=== PATIENT | male | born 1955 | race Caucasian/White ===

== ENCOUNTER 2019-07-09 12:44 | Inpatient (IN) | payer BC ==
--- NOTE | 2019-07-09 13:33 | EDM.PDOC ---
ED HPI GENERAL MEDICAL PROBLEM - General Chief Complaint: Gastrointestinal Problem Stated Complaint: VOMITING, POST SURGERY Time Seen by Provider: 07/09/19 13:00 Source of Information: Reports: Patient, Family History Limitations: Reports: No Limitations - History of Present Illness INITIAL COMMENTS - FREE TEXT/NARRATIVE: 64-year-old male with epigastric pain, pressure and bloating with nausea for the past 36 hours. He has a history of gastric bypass 8 years ago and has done real well. However over the last 36 hours every time he eats he gets distention , pressure, upper abdominal pain and then emesis. He has had no bowel movement for the past 2 days which is very unusual for him. No fevers or chills. Onset: Sudden Duration: Hour(s): (36 hours) Location: Reports: Abdomen (Upper abdomen) Associated Symptoms: Reports: Nausea/Vomiting. Denies: Chest Pain, Cough, Diaphoresis, Fever/Chills, Headaches, Malaise (Especially after eating), Shortness of Breath Abdominal Pain Score (Numeric/FACES): 5 - Related Data Allergies Allergy/AdvReac Type Severity Reaction Status Date / Time No Known Allergies Allergy Verified 07/09/19 13:16 Home Meds: Home Meds Levothyroxine 75 mcg PO ACBREAKFAST 07/09/19 [History] Past Medical History HEENT History: Reports: Allergic Rhinitis, Cataract, Impaired Vision Cardiovascular History: Reports: Hypertension Genitourinary History: Reports: Renal Calculus Endocrine/Metabolic History: Reports: Hypothyroidism Hematologic History: Reports: Iron Deficiency - Past Surgical History GI Surgical History: Reports: Bariatric Procedure Social & Family History - Tobacco Use Smoking Status *Q: Never Smoker - Recreational Drug Use Recreational Drug Use: No ED ROS GENERAL - Review of Systems Review Of Systems: See Below Constitutional: Reports: Malaise. Denies: Fever, Chills HEENT: Reports: No Symptoms Respiratory: Denies: Shortness of Breath Cardiovascular: Denies: Chest Pain GI/Abdominal: Reports: Abdominal Pain, Distension, Nausea, Vomiting : Reports: No Symptoms Musculoskeletal: Reports: No Symptoms Skin: Reports: No Symptoms Neurological: Reports: No Symptoms Psychiatric: Reports: No Symptoms ED EXAM, GI/ABD - Physical Exam Exam: See Below Exam Limited By: No Limitations General Appearance: Alert, No Apparent Distress Eyes: Bilateral: Normal Appearance Head: Atraumatic Respiratory/Chest: No Respiratory Distress, Lungs Clear, Chest Non-Tender Cardiovascular: Regular Rate, Rhythm GI/Abdominal Exam: Soft, Tender (Tender to palpation across the upper abdomen but no guarding or rebound. No significant distention.), Abnormal Bowel Sounds ( Bowel sounds are hypoactive) Extremities: No: Pedal Edema Neurological: Alert, Oriented Psychiatric: Normal Affect, Normal Mood Skin Exam: Warm, Dry Course - Vital Signs Last Recorded V/S: Last Vital Signs Temp 98.3 F 07/10/19 16:00 Pulse 58 L 07/10/19 16:00 Resp 18 07/10/19 16:00 BP 108/74 07/10/19 16:00 Pulse Ox 95 07/10/19 16:00 - Orders/Labs/Meds Orders: Medication Orders Acetaminophen (Tylenol Extra Strength) 1,000 mg PO Q6H [facility] Celecoxib (Celebrex) 200 mg PO DAILY@0800 [facility] Cyanocobalamin (Vitamin B12) 1,000 mcg IM ONETIME ONE Stop: 07/12/19 09:01 Cyclobenzaprine HCl (Flexeril) 10 mg PO Q6H PRN PRN Reason: Muscle Spasm Diphenhydramine HCl (Benadryl) 50 mg IVPUSH Q4H PRN PRN Reason: ITCHING Gabapentin (Neurontin) 300 mg PO TID [facility] Heparin Sodium (Porcine) (Heparin Sodium) 5,000 units SUBCUT Q12H [facility] Last Admin: 07/10/19 17:17 Dose: 5,000 units Hydromorphone HCl (Dilaudid) 0.5 mg IVPUSH Q2H PRN PRN Reason: MODERATE PAIN Hydromorphone HCl (Dilaudid) 1 mg IV Q2H PRN PRN Reason: SEVERE PAIN Hydroxyzine HCl (Vistaril) 100 mg IM Q4H PRN PRN Reason: pain Lidocaine HCl/Dextrose (Lidocaine 2 Gm/D5w 500 Ml) 2 gm in 500 mls @ 15 mls/hr IV .Q24H [facility] Stop: 07/11/19 14:00 Last Admin: 07/10/19 17:17 Dose: 1 mg/min, 15 mls/hr Dextrose/Lactated Ringer's (Dextrose 5%-Lactated Ringers) 1,000 mls @ 175 mls/ hr IV ASDIRECTED [facility] Multivitamins/Minerals 10 ml/Thiamine HCl 200 mg/ Chromium/Copper/Manganese/ Seleni/Zn 1 ml/ Dextrose/Lactated Ringer's 1,013 mls @ 175 mls/hr IV DAILY@ 1600 [facility] Last Admin: 07/10/19 17:16 Dose: 175 mls/hr Cefoxitin Sodium 2 gm/ Sodium (Chloride) 50 mls @ 100 mls/hr IV Q6H [facility] Stop: 07/11/19 06:29 Last Admin: 07/10/19 17:16 Dose: 100 mls/hr Ferric Sodium Gluconate Complex 250 mg/ Sodium Chloride 120 mls @ 60 mls/hr IV ONETIME ONE Stop: 07/11/19 11:59 Labetalol HCl (Normodyne) 5 mg IVPUSH Q5M PRN PRN Reason: SBP over 160 OR DBP over 95 Levothyroxine Sodium (Levothyroxine) 75 mcg PO DAILY@0730 [facility] Last Admin: 07/10/19 17:16 Dose: 75 mcg Metoclopramide HCl (Reglan) 10 mg IVPUSH Q6H PRN PRN Reason: NAUSEA NOT CONTROL BY ZOFRAN Miscellaneous Information (Remove Patch) 1 ea TRDERM ONETIME ONE Stop: 07/12/19 10:01 Scopolamine Patch (Check) 1 each TOP DAILY [facility] Stop: 07/12/19 14:55 Ondansetron HCl (Zofran) 4 mg IV Q4H PRN PRN Reason: Nausea/Vomiting Pantoprazole Sodium (Protonix Iv) 40 mg IVPUSH Q24H [facility] Scopolamine (Transderm-Scop) 1.5 mg TOP Q72H [facility] Stop: 07/12/19 10:00 Last Admin: 07/10/19 17:17 Dose: 1.5 mg Labs: Laboratory Tests 07/09/19 07/09/19 Range/Units 13:46 13:46 WBC 7.6 (4.5-11.0) K/uL RBC 4.25 L (4.30-5.90) M/uL Hgb 12.6 (12.0-15.0) g/dL Hct 39.2 L (40.0-54.0) % MCV 92 (80-98) fL MCH 30 (27-31) pg MCHC 32 (32-36) % Plt Count 279 (150-400) K/uL Neut % (Auto) 81 H (36-66) % Lymph % (Auto) 8 L (24-44) % [place] % (Auto) 11 H (2-6) % Eos % (Auto) 0 L (2-4) % Baso % (Auto) 0 (0-1) % Sodium 138 L (140-148) mmol/L Potassium 3.8 (3.6-5.2) mmol/L Chloride 103 (100-108) mmol/L Carbon Dioxide 21 (21-32) mmol/L Anion Gap 17.8 H (5.0-14.0) mmol/L BUN 18 (7-18) mg/dL Creatinine 1.1 (0.8-1.3) mg/dL Est Cr Clr Drug Dosing 69.63 mL/min Estimated GFR (MDRD) > 60 (>60) Glucose 106 (74-106) mg/dL Calcium 9.0 (8.5-10.1) mg/dL Total Bilirubin 0.8 (0.2-1.0) mg/dL AST 26 (15-37) U/L ALT 30 (12-78) U/L Alkaline Phosphatase 110 (46-116) U/L Total Protein 7.4 (6.4-8.2) g/dL Albumin 3.9 (3.4-5.0) g/dL Globulin 3.5 (2.3-3.5) g/dL Albumin/Globulin Ratio 1.1 L (1.2-2.2) Lipase 285 (73-393) U/L Meds: Medications Generic Name Dose Route Start Last Admin Trade Name Freq PRN Reason Stop Dose Admin Acetaminophen 1,000 mg 07/10/19 20:00 Tylenol Extra Strength PO Q6H [facility] Celecoxib 200 mg 07/11/19 08:00 Celebrex PO DAILY@0800 [facility] Cyanocobalamin 1,000 mcg 07/12/19 09:00 Vitamin B12 IM 07/12/19 09:01 ONETIME ONE Cyclobenzaprine HCl 10 mg 07/10/19 14:58 Flexeril PO Q6H PRN Muscle Spasm Diphenhydramine HCl 50 mg 07/10/19 14:54 Benadryl IVPUSH Q4H PRN ITCHING Gabapentin 300 mg 07/10/19 21:00 Neurontin PO TID AD[facility] Heparin Sodium (Porcine) 5,000 units 07/10/19 18:00 07/10/19 17:17 Heparin Sodium SUBCUT 5,000 units Q12H [facility] Administration Hydromorphone HCl 0.5 mg 07/10/19 14:54 Dilaudid IVPUSH Q2H PRN MODERATE PAIN Hydromorphone HCl 1 mg 07/10/19 14:54 Dilaudid IV Q2H PRN SEVERE PAIN Hydroxyzine HCl 100 mg 07/10/19 14:54 Vistaril IM Q4H PRN pain Lidocaine HCl/Dextrose 2 gm in 500 mls @ 15 mls/hr 07/10/19 11:00 07/10/19 17 :17 Lidocaine 2 Gm/D5w 500 Ml IV 07/11/19 14:00 1 mg/min .Q24H [facility] 15 mls/hr Administration 1 MG/MIN Dextrose/Lactated Ringer's 1,000 mls @ 175 mls/hr 07/10/19 15:00 Dextrose 5%-Lactated Ringers IV ASDIRECTED [facility] Multivitamins/Minerals 10 ml/ 1,013 mls @ 175 mls/hr 07/10/19 16:00 07/10/19 17:16 Thiamine HCl 200 mg/ Chromium/ IV 175 mls/hr Copper/Manganese/Seleni/Zn 1 DAILY@1600 [facility] Administration ml/ Dextrose/Lactated Ringer's Cefoxitin Sodium 2 gm/ Sodium 50 mls @ 100 mls/hr 07/10/19 18:00 07/10/19 17: 16 Chloride IV 07/11/19 06:29 100 mls/hr Q6H [facility] Administration Ferric Sodium Gluconate 120 mls @ 60 mls/hr 07/11/19 10:00 Complex 250 mg/ Sodium IV 07/11/19 11:59 Chloride ONETIME ONE Labetalol HCl 5 mg 07/10/19 14:54 Normodyne IVPUSH Q5M PRN SBP over 160 OR DBP over 95 Levothyroxine Sodium 75 mcg 07/10/19 16:00 07/10/19 17:16 Levothyroxine PO 75 mcg DAILY@0730 [facility] Administration Metoclopramide HCl 10 mg 07/10/19 14:54 Reglan IVPUSH Q6H PRN NAUSEA NOT CONTROL BY ZOFRAN Miscellaneous Information 1 ea 07/12/19 10:00 Remove Patch TRDERM 07/12/19 10:01 ONETIME ONE Scopolamine Patch 1 each 07/10/19 14:54 Check TOP 07/12/19 14:55 DAILY [facility] Ondansetron HCl 4 mg 07/09/19 16:06 Zofran IV Q4H PRN Nausea/Vomiting Pantoprazole Sodium 40 mg 07/11/19 05:00 Protonix Iv IVPUSH Q24H [facility] Scopolamine 1.5 mg 07/10/19 16:00 07/10/19 17:17 Transderm-Scop TOP 07/12/19 10:00 1.5 mg Q72H [facility] Administration Discontinued Medications Generic Name Dose Route Start Last Admin Trade Name Freq PRN Reason Stop Dose Admin Bupivacaine HCl/Epinephrine Bitart Confirm 07/10/19 12:56 07/10/19 13:36 Marcaine 0.5%/Epinephrine 1:200,000 Administered 07/10/19 12:57 40 ml Dose Administration 50 ml .ROUTE .STK-MED ONE Ropivacaine 40 ml/ 0 ml 07/10/19 10:30 07/10/19 13:22 Dexamethasone 8 mg/ NERVRT 80 syringe Epinephrine HCl 0.4 mg/ Sodium ASDIRECTED ADONAY Administration Chloride 37.6 ml Dexamethasone Confirm 07/10/19 08:31 Dexamethasone Administered 07/10/19 08:32 Dose 4 mg .ROUTE .STK-MED ONE Fentanyl Confirm 07/10/19 08:31 Sublimaze Administered 07/10/19 08:32 Dose 250 mcg .ROUTE .STK-MED ONE Fentanyl Confirm 07/10/19 12:34 Sublimaze Administered 07/10/19 12:35 Dose 250 mcg .ROUTE .STK-MED ONE Fentanyl 50 mcg 07/10/19 14:07 07/10/19 14:14 Sublimaze IVPUSH 07/10/19 14:08 50 mcg ONETIME ONE Administration Glycopyrrolate Confirm 07/10/19 08:31 Robinul Administered 07/10/19 08:32 Dose 1 mg .ROUTE .STK-MED ONE Hydromorphone HCl 0.5 mg 07/09/19 16:10 07/09/19 21:13 Dilaudid IVPUSH 0.5 mg Q4H PRN Administration Pain Hydroxyzine HCl 75 mg 07/10/19 14:08 07/10/19 14:15 Vistaril IM 07/10/19 14:09 75 mg ONETIME ONE Administration Sodium Chloride 1,000 mls @ 500 mls/hr 07/09/19 14:15 07/09/19 15:00 Normal Saline IV 500 mls/hr ASDIRECTED ADONAY Administration Sodium Chloride 80 mls @ 3.5 mls/sec 07/09/19 14:29 07/09/19 14:48 Normal Saline IV 07/09/19 14:30 3 mls/sec ONETIME ONE Administration Dextrose/Lactated Ringer's 1,000 mls @ 150 mls/hr 07/09/19 16:15 07/10/19 06: 25 Dextrose 5%-Lactated Ringers IV 150 mls/hr ASDIRECTED [facility] Administration Ketamine HCl 50 mg/ Sodium 50 mls @ 21 mls/hr 07/10/19 10:30 Chloride IV ASDIRECTED ADONAY 5 MCG/KG/MIN Cefoxitin Sodium 2 gm/ Sodium 50 mls @ 100 mls/hr 07/10/19 10:45 07/10/19 12: 20 Chloride IV 07/10/19 11:14 100 mls/hr ONCALL ONE Administration Acetaminophen Confirm 07/10/19 12:45 Ofirmev Administered 07/10/19 12:46 Dose 100 mls @ as directed IV .STK-MED ONE Lactated Ringer's Confirm 07/10/19 13:18 Ringers, Lactated Administered 07/10/19 13:19 Dose 1,000 mls @ as directed .ROUTE .STK-MED ONE Iopamidol 129 ml 07/09/19 14:30 07/09/19 14:48 Isovue-300 (61%) IV 07/09/19 14:31 129 ml . DIRECTED ADONAY Administration Ketamine HCl 35 mg 07/10/19 10:30 Ketalar IV ASDIRECTED [facility] Labetalol HCl Confirm 07/10/19 13:43 Normodyne Administered 07/10/19 13:44 Dose 20 mg .ROUTE .STK-MED ONE Lidocaine HCl 100 mg 07/10/19 10:30 Xylocaine 2% IVPUSH ASDIRECTED [facility] Meropenem Confirm 07/10/19 12:42 07/10/19 12:51 Merrem Administered 07/10/19 12:43 500 mg Dose Administration 500 mg .ROUTE .STK-MED ONE Neostigmine Methylsulfate Confirm 07/10/19 08:31 Neostigmine Administered 07/10/19 08:32 Dose 5 mg .ROUTE .STK-MED ONE Ondansetron HCl Confirm 07/10/19 08:31 Zofran Administered 07/10/19 08:32 Dose 4 mg .ROUTE .STK-MED ONE Pantoprazole Sodium 40 mg 07/09/19 17:00 07/10/19 05:04 Protonix Iv IV 40 mg Q12H [facility] Administration Propofol Confirm 07/10/19 08:31 Diprivan 20 Ml Administered 07/10/19 08:32 Dose 200 mg .ROUTE .STK-MED ONE Rocuronium [place] Confirm 07/10/19 08:31 Zemuron Administered 07/10/19 08:32 Dose 50 mg .ROUTE .STK-MED ONE Sodium Chloride 10 ml 07/09/19 14:29 07/09/19 14:48 Saline Flush FLUSH 07/09/19 14:30 10 ml ONETIME ONE Administration Succinylcholine Chloride Confirm 07/10/19 08:31 Quelicin Administered 07/10/19 08:32 Dose 200 mg .ROUTE .STK-MED ONE - Re-Assessments/Exams Free Text/Narrative Re-Assessment/Exam: 07/09/19 14:00 CBC CMP and lipase were obtained, patient will need a CT of the abdomen and pelvis when labs return. 07/09/19 14:23 Labs were all reassuring. An IV was started and a CT of the abdomen and pelvis with IV contrast was obtained. 07/09/19 15:25 CT the abdomen confirmed a small bowel obstruction and possible internal hernia. This was discussed with Dr. Rowley, patient will be admitted to the surgical service with pain control, IV hydration and a surgical evaluation and likely surgery tomorrow. Departure - Departure Time of Disposition: 15:56 Disposition: Admitted As Inpatient 68 Clinical Impression: Small bowel obstruction Abdominal pain Qualifiers: Abdominal location: upper abdomen, unspecified Qualified Code(s): R10.10 - Upper abdominal pain, unspecified - Discharge Information
[2019-07-09] MEDS ORDERED: Sodium Chloride 0.9% 1,000 ML IV SCH (14:15)
[2019-07-09] MEDS ORDERED: Sodium Chloride 0.9% 80 ML IV ONE (14:29)
[2019-07-09] MEDS ORDERED: Sodium Chloride 0.9% 10 ML Syringe FLUSH ONE (14:29)
[2019-07-09] MEDS ORDERED: Iopamidol 612 MG/ML 150 ML Bottle IV SCH (14:30)
--- NOTE | 2019-07-09 15:14 | CRLCT ---
Indication: Upper abdominal pain. History of gastric bypass in 2010. Technique: Multiple contiguous axial images were obtained from the lung bases through the symphysis pubis after the intravenous administration of 129 milliliters Isovue-300. Please note that all CT scans at this facility use dose modulation, iterative reconstruction, and/or weight-based dosing when appropriate to reduce radiation dose to as low as reasonably achievable. Comparison: None Findings: Heart is normal in size. The lung bases are clear. The liver, gallbladder, spleen, pancreas, adrenals, and kidneys are normal. No intrahepatic biliary ductal dilatation is identified. Postsurgical changes of a gastric bypass are identified. The stomach wall thickened, most likely due to lack of complete distention. In the pelvis, the urinary bladder is distended. The prostate gland is normal. A small amount of free fluid is identified within the abdomen and pelvis. No free air is identified within the abdomen or pelvis. Dilated loops of small bowel are identified. Bowel loops are dilated up to 4.5 cm in size. This dilatation the proximal jejunum extends throughout the entire colon. There is fat stranding within the mesentery. They are most appears to be a swirling of the mesenteric vessels, best seen on image number 57, series 2. This raises the possibility of an internal hernia. Impression: Findings most consistent with a small-bowel obstruction. A small amount of free fluid is identified within the abdomen and pelvis but there is no evidence of free air. There appears to be a swirling of the mesentery, which raises the possibility of an internal hernia. Postoperative changes of a gastric bypass. Please note that all CT scans at this facility use dose modulation, iterative reconstruction, and/or weight-based dosing when appropriate to reduce radiation dose to as low as reasonably achievable. Dictated by Nancy Lee MD @ Jul 09 2019 3:06PM Signed by Dr. Nancy Lee @ Jul 09 2019 3:14PM
[2019-07-09] MEDS ORDERED: Ondansetron 4 MG/2 ML SDV IV PRN (16:06)
[2019-07-09] MEDS ORDERED: HYDROmorphone 0.5 MG/0.5 ML Syringe IVPUSH PRN (16:10)
[2019-07-09] MEDS: Dextrose 5%-Lactated Ringers 1,000 ML IV SCH ×2 (16:44→23:39)
[2019-07-09] MEDS: Pantoprazole 40 MG Vial IV SCH (16:48)
[2019-07-10] MEDS: Pantoprazole 40 MG Vial IV SCH (05:04)
[2019-07-10] MEDS: Dextrose 5%-Lactated Ringers 1,000 ML IV SCH (06:25)
--- NOTE | 2019-07-10 08:03 | PN ---
DATE OF SERVICE: 07/10/2019 This is a 64-year-old, admitted yesterday with picture of a small-bowel obstruction. The patient had Michael-en-Y gastric bypass in 2010, and generally he has done well with a present weight of 182, BMI of 26.9. He developed abdominal pain over the last several days, did have some nausea and emesis yesterday. CT scan on admission shows a swelling pattern consistent with a small bowel volvulus. At this point, the patient while being n.p.o. is really comfortable but when eating, he has noted that he develops the abdominal pain quite dramatically. Plan will be to proceed with a limited laparotomy today with reduction of volvulus, small bowel resection as indicated, and closure of any internal hernias. Potential risks of procedure including bleeding, infection, leaks from any GI tract closures, possible recurrence of the problem over time as well as remote possibility of cardiopulmonary, septic, or hemorrhagic complications leading to were discussed, and the patient wishes to proceed. We will check on his bariatric lab status at the clinic later this morning and recheck QAMARKER] has not been done recently in that regard. Saran Rowley MD /[id number]
[2019-07-10] MEDS ORDERED: Dexamethasone 4 MG/ML SDV ONE (08:31)
[2019-07-10] MEDS ORDERED: fentaNYL 250 MCG/5 ML SDV ONE ×2 (08:31→12:34)
[2019-07-10] MEDS ORDERED: Ondansetron 4 MG/2 ML SDV ONE (08:31)
[2019-07-10] MEDS ORDERED: Neostigmine Methylsulfate 1 MG/ML 5 ML Syringe ONE (08:31)
[2019-07-10] MEDS ORDERED: Glycopyrrolate 0.2 MG/ML 5 ML MDV ONE (08:31)
[2019-07-10] MEDS ORDERED: Rocuronium 50 MG/5 ML Vial ONE (08:31)
[2019-07-10] MEDS ORDERED: Propofol 200 MG/20 ML SDV ONE (08:31)
[2019-07-10] MEDS ORDERED: Succinylcholine 200 MG/10 ML MDV ONE (08:31)
[2019-07-10] MEDS ORDERED: Ketamine 500 MG/5 ML MDV IV SCH (10:30)
[2019-07-10] MEDS ORDERED: Ketamine 50 MG in Sodium Chloride 0.9% 49.5 ML IV SCH (10:30)
[2019-07-10] MEDS ORDERED: Lidocaine 2% 100 MG/5 ML Syringe IVPUSH SCH (10:30)
[2019-07-10] MEDS ORDERED: Ropivacaine 40 ML, dexAMETHasone 8 MG, EPINEPHrine 0.4 MG, Sodium Chloride 0.9% 37.6 ML NERVRT SCH ×4 (10:30)
[2019-07-10] MEDS ORDERED: cefOXitin 2 GM in Sodium Chloride 0.9% 50 ML IV ONE (10:45)
[2019-07-10] MEDS ORDERED: Meropenem 500 MG SDV ONE (12:42)
[2019-07-10] MEDS ORDERED: Bupivacaine 0.5%/EPINEPHrine 1:200,000 50 ML MDV ONE (12:56)
[2019-07-10] MEDS ORDERED: Lactated Ringers 1,000 ML ONE (13:18)
[2019-07-10] MEDS ORDERED: Labetalol 20 MG/4 ML Syringe ONE (13:43)
[2019-07-10] MEDS ORDERED: fentaNYL 100 MCG/2 ML SDV IVPUSH ONE (14:07)
[2019-07-10] MEDS ORDERED: hydrOXYzine HCl 100 MG/2 ML SDV IM ONE (14:08)
[2019-07-10] MEDS ORDERED: hydrOXYzine HCl 100 MG/2 ML SDV IM PRN (14:54)
[2019-07-10] MEDS ORDERED: Pantoprazole 40 MG Vial IVPUSH SCH (14:54)
[2019-07-10] MEDS ORDERED: Labetalol 20 MG/4 ML Syringe IVPUSH PRN (14:54)
[2019-07-10] MEDS ORDERED: Metoclopramide 10 MG/2 ML SDV IVPUSH PRN (14:54)
[2019-07-10] MEDS ORDERED: diphenhydrAMINE 50 MG/ML SDV IVPUSH PRN (14:54)
[2019-07-10] MEDS ORDERED: Scopolamine 1.5 MG Transdermal Patch TOP SCH (16:00)
[2019-07-10] MEDS: MVI, Adult with Vitamin K 10 ML, Thiamine 200 MG, Chromium/Copper/Mang/Selen/Zn 1 ML in... IV SCH ×4 (17:16)
[2019-07-10] MEDS: cefOXitin 2 GM in Sodium Chloride 0.9% 50 ML IV SCH (17:16)
[2019-07-10] MEDS: Levothyroxine 25 MCG Tab PO SCH (17:16)
[2019-07-10] MEDS: Lidocaine 0.4%/D5W 2 GM/500 ML BAG IV SCH (17:17)
[2019-07-10] MEDS: Heparin Sodium 5,000 Units/ML Vial SUBCUT SCH (17:17)
[2019-07-10] MEDS: Acetaminophen 500 MG Tab PO SCH (19:33)
[2019-07-10] MEDS ORDERED: Gabapentin 300 MG Cap PO SCH (21:00)
[2019-07-10] MEDS: HYDROmorphone 0.5 MG/0.5 ML Syringe IVPUSH PRN (21:41)
[2019-07-11] MEDS: cefOXitin 2 GM in Sodium Chloride 0.9% 50 ML IV SCH ×2 (00:08→05:09)
[2019-07-11] MEDS: Dextrose 5%-Lactated Ringers 1,000 ML IV SCH ×4 (00:11→21:09)
[2019-07-11] MEDS: HYDROmorphone 1 MG/ML Syringe IV PRN ×3 (00:55→14:07)
[2019-07-11] MEDS: Acetaminophen 500 MG Tab PO SCH ×4 (01:02→21:13)
[2019-07-11] MEDS ORDERED: Iopamidol 510 MG/ML 50 ML SDV PO STA (02:14)
[2019-07-11] MEDS ORDERED: Iopamidol 612 MG/ML 50 ML SDV PO STA (02:16)
--- NOTE | 2019-07-11 05:06 | CRLCR ---
Indication: Bowel resection Technique: Two views of the abdomen obtained following the administration of oral contrast. Comparison: A CT dated 07/09/2019 Findings/Impression : Apparent gastrojejunostomy with contrast opacifying proximal left abdominal jejunal segments. No gross contrast extravasation seen. Several dilated gas-filled abdominal bowel segments. A 7 mm left abdominal calcification projecting over the left renal lower pole, compatible with a left renal calculus. Anterior lower abdominal skin tayler. No suspicious osseous abnormality seen. Dictated by Vadim Herman MD @ 07/11/2019 5:04:02 AM Dictated by: Vadim Herman MD @ 07/11/2019 05:04:09 (Electronically Signed)
[2019-07-11] MEDS: Pantoprazole 40 MG Vial IVPUSH SCH (05:09)
[2019-07-11] MEDS: Cyclobenzaprine 10 MG Tab PO PRN (06:10)
[2019-07-11] MEDS: Heparin Sodium 5,000 Units/ML Vial SUBCUT SCH ×2 (06:14→17:59)
[2019-07-11] MEDS ORDERED: Ondansetron 4 MG Tab.DIS PO PRN (07:19)
[2019-07-11] MEDS: Levothyroxine 25 MCG Tab PO SCH (07:50)
[2019-07-11] MEDS: Celecoxib 200 MG Cap PO SCH (07:50)
[2019-07-11] MEDS: SCOPOLAMINE PATCH CHECK TOP SCH (08:34)
[2019-07-11] MEDS ORDERED: Sodium Ferric Gluconate Cmplex 250 MG in Sodium Chloride 0.9% 100 ML IV ONE (10:00)
[2019-07-11] MEDS: HYDROmorphone 0.5 MG/0.5 ML Syringe IVPUSH PRN ×3 (10:03→21:56)
--- NOTE | 2019-07-11 10:07 | PN ---
DATE OF SERVICE: 07/11/2019 SUBJECTIVE: Sandro is postop day #1. He reports pain is controlled. He has been up ambulating. Vital signs have been stable. Oral intake 240. Urine output 2275. He has no other concerns or questions today. REVIEW OF SYSTEMS: Remainder of review of systems negative for any pertinent positives and negatives. OBJECTIVE: GENERAL: Sandro Doherty is a pleasant 64-year-old male. VITAL SIGNS: TPR; 97.2, 71, 16. Blood pressure 135/89. HEENT: Negative. NECK: Supple. HEART: Regular rate and rhythm. LUNGS: Clear. ABDOMEN: Dressings dry and intact. Abdominal binder is on. EXTREMITIES: Without peripheral edema. ASSESSMENT: 1. Exploratory laparotomy with: a. Reduction of small bowel volvulus and closure of internal hernia. b. Small bowel resection. c. Enterotomy with tube decompression of small bowel and placement of Interceed mesh. Date of surgery, 07/10/2019. Surgeon, Saran Rowley M.D. PLAN: 1. Step 2 gastric bypass diet. 2. Decrease IV to 100 mL per hour. 3. Dressing off, may shower. 4. Discontinue gabapentin. 5. Zofran ODT 4 mg q.4 hours p.r.n. nausea. 6. Good pulmonary function. 7. We will evaluate p.r.n. or in a.m. Ashley Jasso PA-C /[id number]
[2019-07-11] MEDS: Lidocaine 0.4%/D5W 2 GM/500 ML BAG IV SCH (11:49)
[2019-07-11] MEDS: Calcium Carbonate 500 MG Tab.Chew PO PRN ×2 (14:07→16:47)
[2019-07-11] MEDS: MVI, Adult with Vitamin K 10 ML, Thiamine 200 MG, Chromium/Copper/Mang/Selen/Zn 1 ML in... IV SCH ×4 (15:21)
[2019-07-12] MEDS: Acetaminophen 500 MG Tab PO SCH ×4 (02:05→20:45)
[2019-07-12] MEDS: HYDROmorphone 0.5 MG/0.5 ML Syringe IVPUSH PRN ×2 (02:06→07:29)
[2019-07-12] MEDS: Heparin Sodium 5,000 Units/ML Vial SUBCUT SCH ×2 (05:23→20:45)
[2019-07-12] MEDS: Pantoprazole 40 MG Vial IVPUSH SCH (05:23)
[2019-07-12] MEDS: Dextrose 5%-Lactated Ringers 1,000 ML IV SCH (05:27)
[2019-07-12] MEDS: Celecoxib 200 MG Cap PO SCH (08:42)
[2019-07-12] MEDS: Levothyroxine 25 MCG Tab PO SCH (08:42)
[2019-07-12] MEDS: SCOPOLAMINE PATCH CHECK TOP SCH (08:58)
[2019-07-12] MEDS ORDERED: Cyanocobalamin (Vitamin B12) 1,000 MCG/ML SDV IM ONE (09:00)
[2019-07-12] MEDS ORDERED: Magnesium Hydroxide 400 MG/5 ML Susp 30 ML Cup PO ONE (09:00)
[2019-07-12] MEDS: HYDROmorphone 2 MG Tab PO PRN ×4 (09:17→21:56)
[2019-07-12] MEDS ORDERED: Bisacodyl 5 MG Tab PO ONE (10:00)
--- NOTE | 2019-07-12 11:20 | PN ---
DATE OF SERVICE: 07/12/2019 SUBJECTIVE: Nathen has started passing flatus. He has not had a bowel movement yet. He has been up ambulating. Vital signs have been stable. Oral intake 1060. Urine output 4175. He has been on a step-2 diet and has had 100% of all 3 meals. REVIEW OF SYSTEMS: Remainder of review of systems negative for any pertinent positives and negatives. OBJECTIVE: GENERAL: Nathen Doherty is a 64-year-old male. Alert and orientated. VITAL SIGNS: TPR 96.6, 78, 16, and blood pressure 152/88. HEENT: Negative. NECK: Supple. HEART: Regular rate and rhythm. LUNGS: Clear. ABDOMEN: Aquacel dressing is on. Dry and intact. Abdominal binder is on. EXTREMITIES: Without peripheral edema. ASSESSMENT: Exploratory laparotomy with, 1. Reduction of small bowel volvulus and closure of internal hernia. 2. Small bowel resection. 3. Enterotomy with tube decompression of small bowel and placement of Interceed mesh. Date of surgery, 07/10/2019. Surgeon, Saran Rowley MD. PLAN: 1. Milk of magnesia 30 mL now. 2. Dulcolax 2 tabs 1 hour after milk of magnesia. 3. Discontinue IV Dilaudid. 4. Dilaudid 2 mg 1 to 2 every 4 hours p.r.n. pain. 5. Saline lock IV. 6. Good pulmonary toilet. 7. We will evaluate p.r.n. or in a.m. Ashley Jasso PA-C /[id number]
[2019-07-12] MEDS ORDERED: MVI, Adult with Vitamin K 10 ML, Thiamine 200 MG, Chromium/Copper/Mang/Selen/Zn 1 ML in... IV SCH ×4 (16:00)
[2019-07-12] MEDS: Cyclobenzaprine 10 MG Tab PO PRN (21:57)
[2019-07-13] MEDS: HYDROmorphone 2 MG Tab PO PRN ×3 (02:15→10:48)
[2019-07-13] MEDS: Acetaminophen 500 MG Tab PO SCH ×2 (02:16→08:28)
[2019-07-13] MEDS: Heparin Sodium 5,000 Units/ML Vial SUBCUT SCH (06:17)
[2019-07-13] MEDS ORDERED: Pantoprazole 40 MG Tab.CR PO SCH (07:30)
[2019-07-13] MEDS ORDERED: Bisacodyl 10 MG Supp RECTAL ONE (08:00)
[2019-07-13] MEDS: Celecoxib 200 MG Cap PO SCH (08:28)
[2019-07-13] MEDS: Levothyroxine 25 MCG Tab PO SCH (09:29)
--- NOTE | 2019-07-13 09:39 | DISCH ---
ADMISSION DIAGNOSES: Partial small bowel obstruction, status post Michael-en-Y gastric bypass surgery; unspecified surgical malabsorption; B12 deficiency; history of kidney stones; hypothyroidism; and history of iron deficiency anemia. DISCHARGE DIAGNOSIS: Exploratory laparotomy with: 1. Reduction of small bowel volvulus and closure of internal hernia. 2. Small bowel resection. 3. Enterotomy for tube decompression of small bowel and placement of Interceed mesh. Date of surgery, 07/10/2019. Surgeon, Saran Rowley M.D. HISTORY: Nathen Doherty is a 64-year-old male, who presented to [facility] with postprandial abdominal pain, nausea, vomiting, and distention. After preoperative evaluation, discussion of possible risks and possible complications, he wished to proceed with surgical procedure. HOSPITAL COURSE: Sandro was admitted on 07/09/2019. He had his surgical procedure on 07/10/2019. He had no operative complications. On postop day #1, his pain was controlled. He was started on a step 2 gastric bypass diet. Postop day #2, he was given some bowel stimulation. His activity was good. Pain was controlled. Vital signs stable. On postop day #3, he was able to be discharged to home without any complications. PHYSICAL EXAMINATION: GENERAL: Sandro Doherty is a 64-year-old male. VITAL SIGNS: Height is 5 feet 8.9 inches, weight is 182 pounds. TPR is 97.1, 64, 18. Blood pressure 139/87. HEENT: Negative. NECK: Supple. HEART: Regular rate and rhythm. LUNGS: Clear. ABDOMEN: Carbon are intact. Incision looks good. Abdominal binder has been on. EXTREMITIES: Without peripheral edema. DISPOSITION: Discharged to home. CONDITION: Stable and improving. FOLLOWUP: Followup appointment with Ashley Jasso PA-C, on 07/24/2019, at 11:00 a.m. Appointment is at [place], [place]. HOME MEDICATIONS: 1. Dilaudid 2 mg every 4 hours p.r.n. pain, #42. 2. Tylenol 1000 mg every 6 hours p.r.n. pain. 3. Celebrex 200 mg oral daily, #14. 4. Flexeril 10 mg q.6 hours p.r.n. muscle spasm. He is to resume taking his Synthroid 75 mcg orally before breakfast. DIET: Step 3 gastric bypass diet. Drink 8 to 10 glasses of water a day. ACTIVITY: No lifting over 10 pounds for 6 weeks. DRIVING: Do not drive for 1 week and while on pain medication. SHOWER/BATHING: May shower. Notify provider if any fever, increased pain, swelling, redness, nausea, or vomiting. WOUND INCISION CARE: Keep site clean and dry. Wear abdominal binder for 2 weeks and then as tolerated. SPECIAL INSTRUCTION: Use incentive spirometer 10 times every hour while awake.
--- NOTE | 2019-07-20 08:33 | OR ---
DATE OF PROCEDURE: 07/10/2019 SURGEON: Saran Rowley MD PREOPERATIVE DIAGNOSIS: Small bowel obstruction. POSTOPERATIVE DIAGNOSES: 1. Partial small bowel obstruction associated with: a. Small bowel volvulus. b. 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 2. Marked distention of proximal small bowel. OPERATIVE PROCEDURES: Exploratory laparotomy with: 1. Reduction of small bowel volvulus and closure of internal hernia (27264). 2. Small bowel resection (12372). 3. Enterotomy for tube decompression of small bowel (70351). 4. Placement of Interceed mesh to limit recurrent adhesion formation between pelvic and abdominal wall and underlying viscera (87270). ANESTHESIA: General. INDICATION FOR PROCEDURE: The patient presents with a picture of partial small bowel obstruction. The patient has postprandial crampy abdominal pain and bloating with a clinical picture highly suggestive of partial small bowel obstruction, status post previous Michael-en-Y gastric bypass. Plan is to proceed with limited laparotomy with lysis of adhesions, reduction of any volvulus which might be encountered, along with possible bowel resection. Potential risks including bleeding, infection, injury to underlying viscera, leaks from various GI tract closures, as well as the possibility of recurrence of persistent symptoms postoperatively, and lastly, the remote possibility of cardiopulmonary, septic, or hemorrhagic complications leading to were all discussed, and the patient wishes to proceed. DETAILS OF PROCEDURE: The patient was taken to the operating room, and after general endotracheal anesthesia was induced, a Hinojosa catheter was inserted and the abdomen was prepped and draped. An epigastric incision from the umbilicus roughly a handsbreadth towards the xiphoid was made and carried through the full thickness of the abdominal wall. Upon entering the peritoneal cavity, general exploration was undertaken. There were some scattered adhesions between the omentum, small bowel, and the anterior abdominal wall. As one began constructing the small bowel, there was a significant part of it that was somewhat dusky, consistent with some venous hypertension. As the Michael limb was traced down, it became evident there was a small bowel volvulus. This was then reduced from a [id number] direction underneath a defect in the area underneath the Michael limb. This eventually allowed reduction of the small bowel satisfactorily. There appeared to be a sharp angulation now persistent, however, at the point where the biliopancreatic limb joined the jejunojejunostomy, and this was felt to be best treated by means of a resection and reanastomosis. The small bowel at that level was also strikingly dilated from that point proximally in the biliopancreatic limb. An enterotomy was made in the head of the biliopancreatic limb and from there down into the junction around the duodenum to the jejunum, and a large amount of fluid was evacuated from that area to decompress those areas. The small bowel continuity was then reestablished with an anastomosis between the end of the biliopancreatic limb and the small bowel roughly 20 cm distal to the original jejunojejunostomy with a [id number] enteroenterostomy with an internal firing of the Endo- BRYAN 60 mm stapler. Common opening was then closed transversely with the same stapler, and the angles anastomosed and mesenteric defect approximated with some 3-0 Vicryl stitch. The mesenteric defect was then closed at both the new anastomotic site, as well as the point underneath the Michael limb where the volvulus had occurred, with 2 sets of 2-0 silk stitches. At that point, no further problems were noted. The abdomen was irrigated with antibiotic- containing saline solution. Interceed mesh was placed between the pelvic and abdominal wall to displace those surfaces from the underlying viscera to prevent recurrent adhesion formation. The procedure was then concluded with closure of the fascia with a #2 Vicryl stitch, subcutaneous tissue with 3-0 Vicryl stitch, subdermal tissues with 4-0 Vicryl stitch, and the skin with tayler. The patient had received bilateral transversus abdominis plane blocks and had the fascia injected with 0.5% Marcaine as well. The patient was taken to the recovery room in satisfactory condition. There were no evident complications. Saran Rowley MD /[id number]
== END 2019-07-13 12:55 | disposition home or self-care (01) | DRG 221 ==
LOC: JP.ED 12:44 → JP.MS 15:48
PROVIDERS: ADMIT Surgery; ATTEND Surgery
PROC: 0DB80ZZ Excision of Small Intestine, Open Approach (ICD-10-PCS; principal; 2019-07-10)
PROC: 0DS80ZZ Reposition Small Intestine, Open Approach (ICD-10-PCS; 2019-07-10)
PROC: 3E0M05Z Introduction of Adhesion Barrier into Peritoneal Cavity, Open Approach (ICD-10-PCS; 2019-07-10)
PROC: 0D988ZZ Drainage of Small Intestine, Via Natural or Artificial Opening Endoscopic (ICD-10-PCS; 2019-07-10)
PROC: 0DNW0ZZ Release Peritoneum, Open Approach (ICD-10-PCS; 2019-07-10)
DX: K56.2 Volvulus (principal); E53.8 Deficiency of other specified B group vitamins; E03.9 Hypothyroidism, unspecified; D50.9 Iron deficiency anemia, unspecified; K46.9 Unspecified abdominal hernia without obstruction or gangrene; H54.7 Unspecified visual loss; I10 Essential (primary) hypertension; K63.89 Other specified diseases of intestine; K94.13 Enterostomy malfunction; Z87.442 Personal history of urinary calculi; Z79.899 Other long term (current) drug therapy; Z98.84 Bariatric surgery status
CPT/HCPCS: 36415; 74177; 74240; 80053; 82525; 82728; 83690; 84590; 84630; 85025; 88307; 94762; 96360; 99285-25; A9270-GY; C9113; J0131; J0171; J0330; J0694; J1100; J1170; J1644; J2001; J2185; J2405; J2704; J2710; J2795; J2916; J3010; J3410; J3411; J3420; J3490; J7030; J7042; J7050; J7120; Q9967

== ENCOUNTER 2022-09-13 18:44 | Inpatient (IN) | payer MEDICARE ==
[2022-09-13] MEDS ORDERED: Ondansetron 4 MG/2 ML SDV IV PRN (19:11)
[2022-09-13] MEDS ORDERED: Sodium Chloride 0.9% 1,000 ML IV SCH (19:15)
[2022-09-13] MEDS ORDERED: Pantoprazole 40 MG Vial ONE (20:35)
[2022-09-13] MEDS: Sodium Chloride 0.9% 100 ML with Pantoprazole 80 MG IV SCH ×2 (20:53)
[2022-09-14] MEDS: Levothyroxine 100 MCG Tab PO SCH (08:04)
[2022-09-14] MEDS: Sertraline 25 MG Tab PO SCH (08:04)
[2022-09-14] MEDS: Sodium Chloride 0.9% 100 ML with Pantoprazole 80 MG IV SCH ×6 (08:23→18:16)
[2022-09-14] MEDS ORDERED: Thiamine 100 MG in Sodium Chloride 0.9% 100 ML IV SCH (09:00)
[2022-09-14] MEDS ORDERED: Multivitamins with Iron/Calcium/Folic Acid/Minerals Tab PO SCH (09:00)
[2022-09-14] MEDS ORDERED: Folic Acid 50 MG/10 ML MDV IV SCH (09:00)
[2022-09-14] MEDS ORDERED: MVI, Adult with Vitamin K 10 ML, Folic Acid 1 MG, Thiamine 100 MG in Sodium Chloride 0.... IV SCH ×4 (10:00)
[2022-09-14] MEDS: Acetaminophen 325 MG Tab PO PRN (14:18)
[2022-09-15] MEDS ORDERED: Sodium Chloride 0.9% 1,000 ML IV SCH (00:01)
[2022-09-15] MEDS: Sodium Chloride 0.9% 100 ML with Pantoprazole 80 MG IV SCH ×2 (04:18)
[2022-09-15] MEDS: Levothyroxine 100 MCG Tab PO SCH (07:52)
[2022-09-15] MEDS: Amoxicillin 500 MG Cap PO SCH ×2 (08:55→20:09)
[2022-09-15] MEDS: Acetaminophen 325 MG Tab PO PRN ×2 (09:01→20:07)
[2022-09-15] MEDS: Sertraline 25 MG Tab PO SCH (09:31)
[2022-09-15] MEDS ORDERED: MVI, Adult with Vitamin K 10 ML, Folic Acid 1 MG, Thiamine 100 MG in Sodium Chloride 0.... IV SCH ×4 (10:00)
[2022-09-15] MEDS: Sodium Ferric Gluconate Cmplex 250 MG in Sodium Chloride 0.9% 100 ML IV SCH (10:18)
[2022-09-15] MEDS: Pantoprazole 40 MG Tab.CR PO SCH ×2 (11:04→20:09)
[2022-09-15] MEDS: MVI, Adult with Vitamin K 10 ML, Folic Acid 1 MG, Thiamine 100 MG in Sodium Chloride 0.... IV SCH ×4 (15:06)
[2022-09-16] MEDS: Acetaminophen 325 MG Tab PO PRN ×4 (07:17→23:43)
[2022-09-16] MEDS: Levothyroxine 100 MCG Tab PO SCH (07:18)
[2022-09-16] MEDS: Amoxicillin 500 MG Cap PO SCH ×2 (09:25→20:56)
[2022-09-16] MEDS: Sertraline 25 MG Tab PO SCH (09:25)
[2022-09-16] MEDS: Pantoprazole 40 MG Tab.CR PO SCH ×2 (09:25→20:57)
[2022-09-16] MEDS: Sodium Ferric Gluconate Cmplex 250 MG in Sodium Chloride 0.9% 100 ML IV SCH (10:17)
[2022-09-16] MEDS ORDERED: Sodium Chloride 0.9% 10 ML Syringe IV PRN (10:48)
[2022-09-16] MEDS: MVI, Adult with Vitamin K 10 ML, Folic Acid 1 MG, Thiamine 100 MG in Sodium Chloride 0.... IV SCH ×4 (15:16)
[2022-09-17] MEDS: Levothyroxine 100 MCG Tab PO SCH (07:30)
[2022-09-17] MEDS: Pantoprazole 40 MG Tab.CR PO SCH (08:19)
[2022-09-17] MEDS: Amoxicillin 500 MG Cap PO SCH ×2 (08:19→21:52)
[2022-09-17] MEDS: Sertraline 25 MG Tab PO SCH (08:19)
[2022-09-17] MEDS ORDERED: Pantoprazole 40 MG in Sodium Chloride 0.9% 100 ML IV SCH (11:00)
[2022-09-17] MEDS ORDERED: Pantoprazole 40 MG Vial IV SCH (11:00)
[2022-09-17] MEDS: MVI, Adult with Vitamin K 10 ML, Folic Acid 1 MG, Thiamine 100 MG in Sodium Chloride 0.... IV SCH ×4 (15:59)
[2022-09-17] MEDS: Acetaminophen 325 MG Tab PO PRN (16:04)
[2022-09-17] MEDS: Pantoprazole 80 MG in Sodium Chloride 0.9% 100 ML IV SCH (19:29)
[2022-09-18] MEDS ORDERED: Sodium Chloride 0.9% 1,000 ML IV SCH (00:01)
[2022-09-18] MEDS: Pantoprazole 80 MG in Sodium Chloride 0.9% 100 ML IV SCH ×2 (05:46→15:15)
[2022-09-18] MEDS ORDERED: Magnesium Sulfate/Water 2 GM in Premix Bag 1 BAG IV ONE (06:53)
[2022-09-18] MEDS ORDERED: Iopamidol 612 MG/ML 100 ML Bottle IV ONE (07:04)
[2022-09-18] MEDS ORDERED: Sodium Chloride 0.9% 50 ML IV SCH (07:15)
[2022-09-18] MEDS: Levothyroxine 100 MCG Tab PO SCH (08:08)
[2022-09-18] MEDS ORDERED: Propofol 200 MG/20 ML SDV ONE (09:10)
[2022-09-18] MEDS: Sertraline 25 MG Tab PO SCH (09:54)
[2022-09-18] MEDS: Amoxicillin 500 MG Cap PO SCH ×2 (09:54→20:17)
[2022-09-18] MEDS ORDERED: Bupivacaine 0.5%/EPINEPHrine 1:200,000 50 ML MDV ONE (10:46)
[2022-09-18] MEDS: Piperacillin/Tazobactam 3.375 GM in Sodium Chloride 0.9% 50 ML IV SCH ×2 (11:00→14:38)
[2022-09-18] MEDS ORDERED: Ondansetron 4 MG Tab.DIS PO PRN (12:44)
[2022-09-18] MEDS ORDERED: HYDROmorphone 0.5 MG/0.5 ML Syringe IVPUSH PRN (12:44)
[2022-09-18] MEDS: oxyCODONE 5 MG Tab PO PRN ×2 (13:32→20:16)
[2022-09-18] MEDS: MVI, Adult with Vitamin K 10 ML, Folic Acid 1 MG, Thiamine 100 MG in Sodium Chloride 0.... IV SCH ×4 (15:17)
[2022-09-18] MEDS: Acetaminophen 325 MG Tab PO PRN ×2 (15:54→22:41)
[2022-09-19] MEDS: oxyCODONE 5 MG Tab PO PRN ×3 (00:14→22:57)
[2022-09-19] MEDS: Pantoprazole 80 MG in Sodium Chloride 0.9% 100 ML IV SCH ×2 (02:08→13:43)
[2022-09-19] MEDS: Acetaminophen 325 MG Tab PO PRN ×4 (02:57→20:22)
[2022-09-19] MEDS: Levothyroxine 100 MCG Tab PO SCH (07:10)
[2022-09-19] MEDS: Amoxicillin 500 MG Cap PO SCH ×2 (08:17→20:19)
[2022-09-19] MEDS: Sertraline 25 MG Tab PO SCH (08:18)
[2022-09-19] MEDS ORDERED: Cyanocobalamin (Vitamin B12) 1,000 MCG/ML SDV IM ONE (09:30)
[2022-09-19] MEDS ORDERED: Furosemide 20 MG/2 ML VIAL IVPUSH ONE (12:00)
[2022-09-19] MEDS: MVI, Adult with Vitamin K 10 ML, Folic Acid 1 MG, Thiamine 100 MG in Sodium Chloride 0.... IV SCH ×4 (16:11)
[2022-09-20] MEDS: Pantoprazole 80 MG in Sodium Chloride 0.9% 100 ML IV SCH ×3 (00:09→17:52)
[2022-09-20] MEDS: oxyCODONE 5 MG Tab PO PRN ×5 (03:35→21:42)
[2022-09-20 05:10] LABS: ESTIMATED GFR 98 mL/min (>60)
[2022-09-20] MEDS: Levothyroxine 100 MCG Tab PO SCH (07:35)
[2022-09-20] MEDS: Sodium Chloride 0.9% 1,000 ML IV SCH ×2 (07:37→16:25)
[2022-09-20] MEDS: Acetaminophen 325 MG Tab PO PRN (08:05)
[2022-09-20] MEDS: Amoxicillin 500 MG Cap PO SCH (08:06)
[2022-09-20] MEDS: Sertraline 25 MG Tab PO SCH (08:07)
[2022-09-20] MEDS: MVI, Adult with Vitamin K 10 ML, Folic Acid 1 MG, Thiamine 100 MG in Sodium Chloride 0.... IV SCH ×4 (15:38)
[2022-09-20] MEDS ORDERED: Pantoprazole 80 MG in Sodium Chloride 0.9% 100 ML IV SCH (20:00)
[2022-09-21] MEDS: Acetaminophen 325 MG Tab PO PRN ×2 (00:51→11:35)
[2022-09-21] MEDS: Levothyroxine 100 MCG Tab PO SCH (07:39)
[2022-09-21] MEDS: Sertraline 25 MG Tab PO SCH (08:19)
[2022-09-21] MEDS: oxyCODONE 5 MG Tab PO PRN (08:21)
[2022-09-21] MEDS ORDERED: Pantoprazole 40 MG Vial IVPUSH SCH (09:00)
[2022-09-22 17:12] LABS: VITAMIN E(ALPHA TOCOPHEROL) 6.9 mg/L (9.0-29.0); VITAMIN E(GAMMA TOCOPHEROL) 0.4 mg/L (0.5-4.9)
== END 2022-09-21 14:10 | disposition home or self-care (01) | DRG 327 ==
LOC: JP.ICU 18:44 → JP.MS 09-15 15:18
PROVIDERS: ADMIT Student in an Organized Health Care Education/Training Program; ATTEND Student in an Organized Health Care Education/Training Program
PROC: 30233N1 Transfusion of Nonautologous Red Blood Cells into Peripheral Vein, Percutaneous Approach (ICD-10-PCS; 2022-09-14)
PROC: 30233N1 Transfusion of Nonautologous Red Blood Cells into Peripheral Vein, Percutaneous Approach (ICD-10-PCS; 2022-09-17)
PROC: 0W3P8ZZ Control Bleeding in Gastrointestinal Tract, Via Natural or Artificial Opening Endoscopic (ICD-10-PCS; principal; 2022-09-18)
PROC: 0DB64ZZ Excision of Stomach, Percutaneous Endoscopic Approach (ICD-10-PCS; 2022-09-18)
PROC: 30233N1 Transfusion of Nonautologous Red Blood Cells into Peripheral Vein, Percutaneous Approach (ICD-10-PCS; 2022-09-18)
DX: K26.4 Chronic or unspecified duodenal ulcer with hemorrhage (principal); D62 Acute posthemorrhagic anemia; E61.1 Iron deficiency; Z98.84 Bariatric surgery status; Z79.890 Hormone replacement therapy; H54.7 Unspecified visual loss; Z87.440 Personal history of urinary (tract) infections; I10 Essential (primary) hypertension; E03.9 Hypothyroidism, unspecified; Z20.822 Contact with and (suspected) exposure to COVID-19
CPT/HCPCS: 36415; 36430; 51798; 74177; 80048; 80053; 82306; 82607; 82728; 82746; 83550; 83735; 84100; 84207; 84425; 84446; 84590; 84597; 85018; 85025; 85027; 85610; 86850; 86900; 86901; 86920; 86922; 87338; A9270-GY; C9113; J1170; J1940; J2543; J2704; J2916; J3411; J3420; J3475; J3490; J7030; P9016; Q9967; U0002

== ENCOUNTER 2023-02-08 15:19 | Emergency (ER) | payer MEDICARE ==
[2023-02-08 17:17] LABS: ESTIMATED GFR 67 mL/min (>60)
[2023-02-08] MEDS ORDERED: Sodium Chloride 0.9% 10 ML Syringe FLUSH PRN (18:04)
[2023-02-08] MEDS ORDERED: Lactated Ringers 1,000 ML IV ONE (18:04)
[2023-02-08] MEDS ORDERED: Sodium Chloride 0.9% 50 ML IV SCH (18:15)
[2023-02-08] MEDS ORDERED: Lactated Ringers 1,000 ML IV SCH (18:15)
[2023-02-08] MEDS ORDERED: Iopamidol 612 MG/ML 100 ML Bottle IV SCH (18:15)
[2023-02-08 19:24] LABS: CORONAVIRUS COVID-19 NAA NEGATIVE (NEGATIVE)
== END 2023-02-08 19:23 | disposition home or self-care (01) ==
LOC: JP.ED 15:19
DX: N13.2 Hydronephrosis with renal and ureteral calculous obstruction (principal); I10 Essential (primary) hypertension; K21.9 Gastro-esophageal reflux disease without esophagitis; E03.9 Hypothyroidism, unspecified; Z88.8 Allergy status to other drugs, medicaments and biological substances; Z79.899 Other long term (current) drug therapy; Z20.822 Contact with and (suspected) exposure to COVID-19
CPT/HCPCS: 0241U; 36415; 74018; 74177; 80053; 83605; 85025; 96360; 99284; J3490; J7120; Q9967